=== PATIENT | female | born 1935 | race Caucasian/White ===

== ENCOUNTER 2017-05-20 01:49 | Inpatient (IN) | payer OTHER, BC ==
[~2017-05-20] VITALS: Ht 160 cm; Wt 109.8 kg
[~2017-05-20 01:49] MED LIST: ALIVE WOMEN'S1 EAC1 PO; ALPHAGAN P100 DROP/1 BOTH EYES; AMLODIPINE BESYL5 MG PO; APRESOLINE20 MG/ML IV; ASPIR 8181 M1 PO; ATORVASTATIN CA40 MG PO; ATROVENT 0.03%30 ML BOTH NARES; AZOPT 1% O200 DROP/1 BOTH EYES; Azopt 1% Ophth Susp BOTH EYES; B-125000 MCG PO; BABY ASPIRIN81 M1 PO; CALTRATE 600 +1 EAC1 PO; CARVEDILOL25 MG PO; CELEBREX200 MG PO; CLONAZEPAM0.5 MG PO; CLONIDINE HCL0.1 MG PO; COLACE100 MG PO; COREG12.5 MG PO; COREG25 M1 PO; CRESTOR20 MG PO; Calcium Carbonate,Ca PO; DIOVAN80 MG PO; DOCUSATE SODIU100 MG PO; EFFEXOR XR150 MG PO; FUROSEMIDE40 MG PO; HYDROCHLOROTH12.5 M3 PO; HYDROCODON-ACE1 EAC7 PO; HYDROCODON-ACE1 EAC8 PO; KLONOPIN0.5 M1 PO; LASIX40 MG PO; LORTAB 5-325 M1 EACH PO; LOVENOX40 MG/0.4 SC; LUMIGAN 0.50 DROP/22 BOTH EYES; MECLIZINE HCL12.5 M1 PO; NEXIUM40 MG PO; NORCO 7.5/321 TABLET PO; OMEPRAZOLE-BIC1 EAC1 PO; OMEPRAZOLE40 M1 PO; PANTOPRAZOLE SO40 MG PO; PERCOCET 5/31 TABLET PO; PROCTOFOAM-HC10 GM PR; Remove Lidoderm Patc TD; SERTRALINE HCL50 MG PO; TIZANIDINE HCL4 M1 PO; TIZANIDINE HCL4 MG PO; Theragran PO; VALACYCLOVIR1000 MG PO; VALSARTAN160 MG PO; VENLAFAXINE HC150 M1 PO; ZANAFLEX4 M1 PO; ZANAFLEX6 MG PO; ZETIA10 MG PO; ZOFRAN ODT8 MG PO; ZOLOFT100 MG PO; [UNRECOGNIZED DRUG - OTHER] BOTH EYES; [UNRECOGNIZED DRUG - OTHER] RIGHT EYE; celeBREX PO
[2017-05-20 02:48] LABS: HEMATOCRIT 36.6 % (36.0-46.0); MCH 31.4 PG (29.0-34.0); MCHC 33.1 G/DL (30.0-36.0); MCV 95.1 FL (83-99); PLATELET COUNT 166 K/uL (156-360); RBC DIS.WIDTH-CV 13.2 % (11.8-14.6); RBC DIS.WIDTH-SD 46.4 % (39-53); RED BLOOD COUNT 3.85 M/uL (3.80-5.20); WHITE BLOOD COUNT 11.3 K/uL (4.1-10.2)
[2017-05-20 03:03] LABS: CHLORIDE 103 mEq/L (99-109); POTASSIUM 3.7 mEq/L (3.7-5.4); SODIUM 142 mEq/L (136-147)
[2017-05-20 03:05] LABS: GLUCOSE 140 mg/dL (70-99)
[2017-05-20 03:07] LABS: ANION GAP 13 MEQ/L (2-14)
[2017-05-20 03:09] LABS: GFR ESTIMATE (CALCULATED) 39 mL/min/
[2017-05-20 03:10] LABS: UREA NITROGEN (BUN) 24 mg/dL (9-23)
[2017-05-20 03:11] LABS: CREATINE KINASE 200 IU/L (1-294); TOTAL CK 200 IU/L (1-294)
[2017-05-20 03:18] LABS: CK-MB 2.4 ng/mL (0.0-4.9)
[2017-05-20 08:17] LABS: ADD MIUA? YES; BILIRUBIN NEGATIVE; BLOOD NEGATIVE; COLOR YELLOW ((YELLOW)); GLUCOSE (STRIP) NEGATIVE; KETONES NEGATIVE; LEUKOCYTES MODERATE; NITRITE NEGATIVE; PROTEIN (STRIP) 30; SPECIFIC GRAVITY 1.021 (1.000-1.030); UROBILINOGEN 0.2 MG/DL (0.2-1.0)
[2017-05-20 08:24] LABS: BACTERIA NONE SEEN /HPF; EPITHELIAL CELLS NONE SEEN /HPF; MUCUS TRACE /LPF; RED BLOOD CELLS 0-5 /HPF (0-5); UCUL ADDED? NO; WHITE BLOOD CELLS 0-5 /HPF (0-5)
[2017-05-20 12:33] VITALS: BP 200/80
[2017-05-20] MEDS ORDERED: LASIX40 MG PO (13:58)
[2017-05-20] MEDS ORDERED: HYDROCODON-ACE1 EAC7 PO (13:58)
[2017-05-20] MEDS ORDERED: DIGESTIVE ADVA1 EAC1 PO (13:59)
[2017-05-20] MEDS ORDERED: RANITIDINE HCL150 MG PO (13:59)
[2017-05-20] MEDS ORDERED: TIZANIDINE HCL6 MG PO (13:59)
[2017-05-20] MEDS ORDERED: BENTYL10 MG PO (14:00)
[2017-05-20] MEDS ORDERED: KLONOPIN0.5 M1 PO (14:00)
[2017-05-20] MEDS ORDERED: SYSTANE 0.3-0.1 EACH BOTH EYES (14:01)
[2017-05-20] MEDS ORDERED: DIOVAN80 MG PO (14:01)
[2017-05-20] MEDS ORDERED: LACTAID ULT9000 UNIT PO (14:02)
[2017-05-20] MEDS ORDERED: LO-DOSE ASPIRIN81 M1 PO (14:02)
[2017-05-20] MEDS ORDERED: CRESTOR20 MG PO (14:02)
[2017-05-20] MEDS ORDERED: COLACE100 MG PO (14:05)
[2017-05-20 16:19] VITALS: BP 190/80
[2017-05-20 19:42] VITALS: BP 215/82
[2017-05-20 23:23] VITALS: BP 173/109
[2017-05-21] VITALS (7 sets, daily range): BP systolic 90–202; BP diastolic 31–87
[2017-05-21 06:35] LABS: HEMATOCRIT 31.9 % (36.0-46.0); MCHC 32.9 G/DL (30.0-36.0); MCV 94.1 FL (83-99); PLATELET COUNT 159 K/uL (156-360); RBC DIS.WIDTH-CV 13.4 % (11.8-14.6); RBC DIS.WIDTH-SD 45.9 % (39-53); RED BLOOD COUNT 3.39 M/uL (3.80-5.20); WHITE BLOOD COUNT 8.3 K/uL (4.1-10.2)
[2017-05-21 06:55] LABS: ANION GAP 10 MEQ/L (2-14); CHLORIDE 106 MEQ/L (99-109); GFR ESTIMATE (CALCULATED) > 59 mL/min/; GLUCOSE 118 mg/dL (70-99); POTASSIUM 3.9 MEQ/L (3.7-5.4); SAMPLE HEMOLYSIS CHECK 0; SAMPLE ICTERIC CHECK 0; SAMPLE LIPEMIA CHECK 0; SODIUM 139 MEQ/L (136-147); UREA NITROGEN (BUN) 18 mg/dL (9-23)
[2017-05-21] MEDS ORDERED: OMEPRAZOLE-BIC1 EAC1 PO (14:43)
[2017-05-22 03:30] VITALS: BP 163/70
[2017-05-22 06:52] LABS: HEMATOCRIT 29.3 % (36.0-46.0); MCH 31.6 PG (29.0-34.0); MCHC 32.8 G/DL (30.0-36.0); MCV 96.4 FL (83-99); PLATELET COUNT 135 K/uL (156-360); RBC DIS.WIDTH-SD 49.4 % (39-53); RED BLOOD COUNT 3.04 M/uL (3.80-5.20); WHITE BLOOD COUNT 7.6 K/uL (4.1-10.2)
[2017-05-22 07:05] VITALS: BP 166/74
[2017-05-22 07:15] LABS: ALKALINE PHOSPHATASE 33 IU/L (3-129); ANION GAP 8 MEQ/L (2-14); CHLORIDE 108 MEQ/L (99-109); GFR ESTIMATE (CALCULATED) > 59 mL/min/; GLUCOSE 118 mg/dL (70-99); POTASSIUM 3.8 MEQ/L (3.7-5.4); SAMPLE HEMOLYSIS CHECK 0; SAMPLE ICTERIC CHECK 0; SAMPLE LIPEMIA CHECK 0; SODIUM 140 MEQ/L (136-147); TOTAL BILIRUBIN 0.5 MG/DL (0.0-1.0); UREA NITROGEN (BUN) 15 mg/dL (9-23)
[2017-05-22 07:54] LABS: TROP-I INTERPRETATION NEGATIVE; TROPONIN-I 0.15 ng/mL (0.0-0.30)
[2017-05-22 14:29] VITALS: BP 145/60
[2017-05-23 07:00] LABS: HEMATOCRIT 28.4 % (36.0-46.0); MCH 31.3 PG (29.0-34.0); MCHC 32.4 G/DL (30.0-36.0); MCV 96.6 FL (83-99); MEAN PLAT.VOLUME 11.5 uM^3 (9.5-12.4); PLATELET COUNT 129 K/uL (156-360); RBC DIS.WIDTH-CV 13.7 % (11.8-14.6); RBC DIS.WIDTH-SD 48.7 % (39-53); RED BLOOD COUNT 2.94 M/uL (3.80-5.20); WHITE BLOOD COUNT 5.9 K/uL (4.1-10.2)
[2017-05-23 07:25] LABS: ALKALINE PHOSPHATASE 32 IU/L (3-129); ANION GAP 6 MEQ/L (2-14); CHLORIDE 110 MEQ/L (99-109); GFR ESTIMATE (CALCULATED) > 59 mL/min/; GLUCOSE 102 mg/dL (70-99); POTASSIUM 4.5 MEQ/L (3.7-5.4); SAMPLE HEMOLYSIS CHECK 0; SAMPLE ICTERIC CHECK 0; SAMPLE LIPEMIA CHECK 0; SODIUM 144 MEQ/L (136-147); TOTAL BILIRUBIN 0.5 MG/DL (0.0-1.0); UREA NITROGEN (BUN) 15 mg/dL (9-23)
[2017-05-23 08:06] VITALS: BP 160/56
[2017-05-23 08:28] VITALS: BP 160/56
[2017-05-23 11:45] VITALS: BP 121/58
[2017-05-23 16:30] VITALS: BP 154/56
[2017-05-23 19:30] VITALS: BP 184/82
[2017-05-23 23:23] VITALS: BP 134/64
[2017-05-24 03:22] VITALS: BP 130/65
[2017-05-24 07:09] LABS: HEMATOCRIT 27.6 % (36.0-46.0); MCH 30.9 PG (29.0-34.0); MCHC 32.6 G/DL (30.0-36.0); MCV 94.8 FL (83-99); MEAN PLAT.VOLUME 11.4 uM^3 (9.5-12.4); PLATELET COUNT 147 K/uL (156-360); RBC DIS.WIDTH-CV 13.5 % (11.8-14.6); RBC DIS.WIDTH-SD 46.7 % (39-53); RED BLOOD COUNT 2.91 M/uL (3.80-5.20); WHITE BLOOD COUNT 5.7 K/uL (4.1-10.2)
[2017-05-24 07:30] VITALS: BP 111/49
[2017-05-24 07:46] LABS: ALKALINE PHOSPHATASE 35 IU/L (3-129); ANION GAP 7 MEQ/L (2-14); CHLORIDE 107 MEQ/L (99-109); GFR ESTIMATE (CALCULATED) > 59 mL/min/; GLUCOSE 128 mg/dL (70-99); POTASSIUM 4.1 MEQ/L (3.7-5.4); SAMPLE HEMOLYSIS CHECK 0; SAMPLE ICTERIC CHECK 0; SAMPLE LIPEMIA CHECK 0; SODIUM 141 MEQ/L (136-147); TOTAL BILIRUBIN 0.5 MG/DL (0.0-1.0); UREA NITROGEN (BUN) 15 mg/dL (9-23)
[2017-05-24 11:51] VITALS: BP 180/65
[2017-05-24 13:54] VITALS: BP 123/69
== END 2017-05-24 14:07 | DRG 536 ==
LOC: EME → EDBD 01:49 → EME 01:49 → 3EAST 08:27 → EDOF 08:27 → ENRESERV 08:28 → EDOF 08:56 → ENRESERV 09:29 → 3EAST 11:02
PROVIDERS: Emergency Medicine; Internal Medicine
DX: S32.810A Multiple fractures of pelvis with stable disruption of pelvic ring, initial encounter for closed fracture (principal); J98.11 Atelectasis; I42.9 Cardiomyopathy, unspecified; D62 Acute posthemorrhagic anemia; N17.9 Acute kidney failure, unspecified; I50.22 Chronic systolic (congestive) heart failure; F33.9 Major depressive disorder, recurrent, unspecified; W01.0XXA Fall on same level from slipping, tripping and stumbling without subsequent striking against object, initial encounter; S70.01XA Contusion of right hip, initial encounter; E11.9 Type 2 diabetes mellitus without complications; E78.5 Hyperlipidemia, unspecified; I11.0 Hypertensive heart disease with heart failure; Y93.K1 Activity, walking an animal; H54.8 Legal blindness, as defined in USA; E73.9 Lactose intolerance, unspecified; H35.30 Unspecified macular degeneration; H40.9 Unspecified glaucoma; R09.02 Hypoxemia; M79.7 Fibromyalgia; K21.9 Gastro-esophageal reflux disease without esophagitis; I65.29 Occlusion and stenosis of unspecified carotid artery; Z88.0 Allergy status to penicillin; Z88.1 Allergy status to other antibiotic agents; I25.2 Old myocardial infarction; Z95.0 Presence of cardiac pacemaker; Z90.710 Acquired absence of both cervix and uterus; Z87.01 Personal history of pneumonia (recurrent); Y92.099 Unspecified place in other non-institutional residence as the place of occurrence of the external cause; Z94.7 Corneal transplant status
CPT/HCPCS: 36415; 71010; 72192; 73502; 78582; 80048; 80053; 81003; 82550; 82553; 84484; 85027; 85379; 93005; 94799; 99281; 99285; A9540; A9567; J0360; J1650; J2270; J2405; J3010; J7030